=== PATIENT | female | born 1990 | race African-American/Black ===

== ENCOUNTER 2019-12-27 15:06 | Emergency (ER) | payer SELFPAY ==
[~2019-12-27] VITALS: Ht 167.6 cm; Wt 84.1 kg
[2019-12-27 15:20] VITALS: Ht 167.6 cm; Wt 84.1 kg
[2019-12-27] MEDS ORDERED: STERAPRED DS 1010 MG PO (16:16)
[2019-12-27] MEDS ORDERED: CLARITIN 10 MG10 MG PO (16:18)
[2019-12-27 16:22] VITALS: BP 125/68
== END 2019-12-27 16:23 | disposition home or self-care (01) ==
LOC: D.ER 15:06
DX: H10.11 Acute atopic conjunctivitis, right eye (principal)

== ENCOUNTER 2020-06-16 17:09 | Emergency (ER) | payer OTHER ==
[~2020-06-16] VITALS: Ht 167.6 cm; Wt 81.8 kg
[~2020-06-16 17:09] MED LIST: CLARITIN 10 MG10 MG PO; STERAPRED DS 1010 MG PO
[2020-06-16 17:33] VITALS: Ht 167.6 cm; Wt 81.8 kg
[2020-06-16] MEDS ORDERED: CLEOCIN HCL300 MG PO (17:50)
[2020-06-16] MEDS ORDERED: NAPROSYN500 MG PO (17:50)
[2020-06-16 19:19] VITALS: BP 128/87
== END 2020-06-16 19:19 | disposition home or self-care (01) ==
LOC: D.ER 17:09
DX: K02.9 Dental caries, unspecified (principal); K08.89 Other specified disorders of teeth and supporting structures; Z72.0 Tobacco use